=== PATIENT | female | born 1995 | race African-American/Black ===

== ENCOUNTER 2018-01-04 12:03 | Inpatient (IN) | payer BC, OTHER ==
[~2018-01-04 12:03] MED LIST: Bupivacaine/Epinephrine 0.25% 30 ML VIAL ONE; Lidocaine 2% MPF 10 ML AMP (For Epidural Use) ONE; Terbutaline Sulfate 1 MG/ML VIAL ONE
--- NOTE | 2018-01-04 12:42 | PDOC.FPROB ---
FMR OB H&P: HPI - History of Present Illness Chief Complaint: Contractions History of Present Illness: 22YO @ 39.2 weeks with no significant history who presents with a chief complaint of contractions. The patient stated that her contractions began around midnight and at first were about 20 minutes apart but are now closer to 10 minutes apart. She describes the contractions as a tight feeling across her back that she now also feels across her entire abdomen that come and go. Patient also endorses losing what she described as a thick mucus discharge from her vagina around 10:00 today. She denies any gush of fluid or vaginal bleeding , itching or any other discharge. Also denies any other symptoms such as headache, vision changes, SOB, or chest pain. Primary Care Physician: ELADIO FMR OB H&P: Current - Care : 1 Para: 0 Due date: 01/09/2018 Dating Criteria: 11.2 week sono & LMP Course/Complications: Borderline oligohydramnios with MARLENY of 6.62. Borderline IUGR with Hadlock of 11.9%. Both on 12/28/17. - OB Labs Blood type: O RH: positive Antibody Screen: negative HIV: negative RPR: negative HepBsAg: negative Rubella: immune Gonorrhea: negative Chlamydia: negative GBS: negative H&H: 12.2/36.8 on 07/06/17 FMR OB H&P: History - Past Medical History PMH: None. - OB History OB History: Borderline oligohydramnios & IUGR on 12/28/17. - Surgical History Sx History: None. - Social History Social History: Denies any tobacco, EtOH, or drug abuse. - Family History Family History: None. FMR OB H&P: Medications - Current Home Medications: Medication Instructions Recorded Confirmed Type Vit Calc,Iron,Folic 1 each PO 01/04/18 History [ Vitamins] FMR OB H&P: ROS - Review of Systems General: denies: fever/chills Eyes: reports: vision changes Cardiovascular: denies: chest pain, edema Respiratory: denies: shortness of breath Gastrointestinal: reports: abdominal pain, cramping Genitourinary (Female): reports: contractions. denies: dysuria, vaginal discharge, vaginal pain, vaginal bleeding FMR OB H&P: Vital Signs - Maternal Vital signs: Temp: 99.8F BP: 105/70 HR: 99 RR: 18 O2 sat: 100% on RA - Heart Tones Baseline: 150 Variability: moderate Acceleration: absent Deceleration: absent Category: category 1 FMR OB H&P: Physical Exam - Physical Exam General: NAD, awake, alert and oriented HEENT: normocephalic and atraumatic Neck: FROM Heart: RRR, normal S1/S2, no edema General: CTAB, no respiratory distress, good air movement, no wheezing, no retractions Abdomen: gravid, bowel sound present Musculoskeletal: FROM in all four extremities Neurological: cranial nerves II through XII intact, sensation to pain,touch and proprioception grossly normal Skin: no rash, good tugor Lymphatic: no unusual bruising or bleeding Psychiatric: intact recent and remote memory, good judgement and insight, normal mood and affect - Pelvic Exam Vulva: normal hair distribution, no lesions, no discharge, no blood FMR OB H&P: A/P - Problem List (1) Term Current Visit: Yes Status: Acute Code(s): Z34.80 - ENCOUNTER FOR SUPRVSN OF NORMAL , UNSP TRIMESTER Disposition: 22YO @ 39.2 weeks consistent with 11.2 week sono & LMP who presents due to increased contractions. 1. Term - Patient is complaining of contractiosn every 10 minutes. No significant pattern established on NST yet. - FHTs reassuring with baseline of 150 with moderate variability. - SVE significant for check of 3/90/-1 @ ~12:50. - Will encourage PO hydration and recheck in ~2-3 hours & check position with U/S. - Will continue to monitor via NST. Discussion: Date/Time: 01/04/18 6470 This H&P was discussed with Dr. Michaels and Dr. Cabrera who agree with the above documentation and plan.
[2018-01-04 12:57] VITALS: BMI 24.8
[2018-01-04] MEDS: Lactated Ringer's 1,000 ML IV SCH ×2 (15:26→16:46)
--- NOTE | 2018-01-04 15:26 | PDOC.LDPN ---
Labor & Delivery Progress Note - Subjective Subjective: comfortable, vaginal pressure, no concerns - Objective Vital signs reviewed and normal: yes General: NAD Dilation: 4.5 Effacement: 90% Station: -1 FHT: category 1, variability present [place] contractions every: not able to clearly determine contraction pattern based on NST - Assessment (1) Term Code(s): Z34.80 - ENCOUNTER FOR SUPRVSN OF NORMAL , UNSP TRIMESTER Current Visit: Yes Status: Acute -: 22YO @ 39.2 weeks consistent with 11.2 week sono & LMP who presents due to increased contractions. 1. Term - Patient is complaining of stronger contractions. Ordered tylenol PRN for pain. - FHTs reassuring with baseline in the 130s with moderate variability. Will continue to monitor via NST. No significant pattern established on NST yet. - SVE significant for check of 4.5/90/-1 @ ~03:10. - Will admit for routine and start on clear liquid diet. - Confirmed cephalic position and posterior placenta. MARLENY meauring adequate with 1 pocket >3cm identified. - No need for labor augmentation at this point since patient is making adequate progress on her own. - Will recheck in ~2-3 hours. Dispo: Admitting for routine .
[2018-01-04] MEDS ORDERED: Lidocaine 1% (PF) 30 ML VIAL SC PRN (15:27)
[2018-01-04] MEDS ORDERED: Ondansetron HCl/PF 4 MG/2 ML Vial IVP PRN ×2 (15:27→18:09)
[2018-01-04] MEDS ORDERED: Promethazine HCl 25 MG/ML VIAL IM PRN ×2 (15:27→18:09)
[2018-01-04] MEDS ORDERED: Acetaminophen 500 MG TAB PO PRN (15:27)
[2018-01-04 15:52] LABS: Hemoglobin 11.4 g/dL (12.0-16.0); Mean Corpuscular HGB CONC 32.2 g/dL (32.0-36.0); Mean Corpuscular Hemoglobin 25.8 pg (25.0-35.0); Mean Corpuscular Volume 80.1 fL (78.0-98.0); Mean Platelet Volume 8.7 fL (7.4-10.4); Platelet Count 201 thou/uL (130-400); RBC Distribution Width 17.7 % (11.5-14.5); Red Blood Cell (RBC) Count 4.41 mill/uL (4.00-5.20); White Blood Cell (WBC) Count 12.3 thou/uL (4.8-10.8)
[2018-01-04 16:37] LABS: Syphilis Antibody Nonreactive (Nonreactive); Syphilis Antibody Index 0.05 S/CO (<1.00 Non-Reactive)
[2018-01-04 16:39] LABS: HBSAg Index 0.15 S/CO (0-0.99); Hep B Surf Ag Non-Reactive S/CO (NonReactive)
[2018-01-04] MEDS ORDERED: DISCONTINUE ALL PREVIOUS NARCOTICS FS SCH (17:00)
[2018-01-04] MEDS ORDERED: Bupivacaine 0.5% 20 ML, fentaNYL Citrate/PF 400 MCG in Sodium Chloride 0.9% 72 ML EPIDURAL SCH (17:00)
--- NOTE | 2018-01-04 17:58 | PDOC.EVN ---
Event Note - Event Note Event Note: On coming attending note Pt comfortable, tolerating contractions but would like epidural. FHT reviewed. Cat I tracing. Lázaro every 2-3 min. Cervix checked at 1730 by RN, / Doing well currently Continue expectant management Anticipate
[2018-01-04] MEDS ORDERED: Lactated Ringer's 500 ML IV PRN (18:09)
[2018-01-04] MEDS ORDERED: Acetaminophen 325 MG TAB PO PRN (18:09)
[2018-01-04] MEDS ORDERED: Naloxone HCl 0.4 mg/ml Vial IVP PRN ×2 (18:09)
[2018-01-04] MEDS ORDERED: Eucerin (Mineral Oil/Petrolatum,White) 30 gm Jar TOP PRN (18:09)
[2018-01-04] MEDS ORDERED: diphenhydrAMINE 50 MG/ML VIAL IVP PRN (18:09)
[2018-01-04] MEDS ORDERED: ePHEDrine/0.9% NaCl/PF SYRINGE 50 mg/10 ml SLOW IVP PRN (18:09)
[2018-01-04] MEDS ORDERED: Communication Order-Pharmacy FS SCH (18:15)
[2018-01-04] MEDS ORDERED: fentaNYL Citrate/PF 400 MCG, Bupivacaine 0.5% 20 ML in Sodium Chloride 0.9% 72 ML EPIDURAL SCH (18:15)
[2018-01-04] MEDS: NS / Oxytocin 40 units/1000ml 1,000 ML IV PRN ×2 (21:58→23:05)
--- NOTE | 2018-01-04 23:48 | PDOC.OPDEL ---
OB Operative/Delivery Note Delivery Dr/Surgeon: Dr. Abdiel Alfaro, assisted by Dr. Abdiel Santiago, attending Dr. Mcgowan Pre-Delivery Diagnosis: active labor Procedure/Post Delivery Dx: spontaneous vaginal delivery Weeks gestation: 39 (39.2 wks) Anesthesia: epidural - Findings A Sex: male - 1 min: 9 - 5 min: 9 - Additional Findings/Plan Placenta delivered: spontaneous Repaired Obstetrical Laceration: vaginal Estimated blood loss: QBL: 294 Compilations/Other Findings: Vaginal Delivery Dictation Guideline Delivering Physician Dr. Abdiel Alfaro, assisted by Dr. Santiago Attending Dr. Mcgowan Procedure: Spontaneous Vaginal Delivery Anesthesia: epidural QBL: 294 ml Pre-op Diagnosis: 1. Term intrauterine in labor Post-op Diagnosis: 1. Term intrauterine , delivered Indications: A 22 y/o female presents in active labor Delivery Note: This is 22 yo F @ 39.2 wks who delivered a viable M infant at 2154. After cervix completely dilated, during second stage of labor pt experienced prolonged tachysystole so terbutaline was given. Following antepartum course, a vigorous M was delivered over an intact perineum in the LYNSEY position. Anterior Shoulder and then remainder of the body delivered. Nuchal cordx1. The head was held down and mouth and nares were bulb suctioned. After delayed cord clamping, cord was cut and cord blood collected. Placenta delivered intact in the Zavaleta presentation with a 3 vessel cord noted. Fundal massage was performed and the fundus was firm. The cervix and vagina were inspected and found to have a vaginal wall laceration. Laceration noted and repaired with 3.0 vicryl suture in the usual fashion with good approximation and hemostasis. Infant went to nursery in good condition for routine care. Apgars were 9/9 at 1 & 5 minutes, respectively. Patient tolerated delivery well and went to after routine recovery/care. Post delivery plan: routine recovery <Yasmeen Alfaro - Last Filed: 01/04/18 23:46> Attending Addendum - Attending Addendum Date/Time: 01/06/18 1204 I personally evaluated the patient and discussed the management with Dr. Alfaro and Ashish I agree with the History, Examination, Assessment and Plan documented above with any addition or exceptions noted below. I was present for and assisted in the uncomplicated of vigorous male . During pushing, baby had prolonged 5 min decel due to uterine tachysystole. 25 mcg given SC x 1 for tocolysis as baby was too high to attempt a vacuum extraction. Baby recovered nicely and after 30min rest pushing was resumed. Heart tones remained WNL during remainder of 2nd stage. <Maura Mcgowan - Last Filed: 01/06/18 12:08>
[2018-01-05] MEDS ORDERED: Benzocaine/Menthol 20-0.5% 60 ML CAN TOP PRN (00:59)
[2018-01-05] MEDS ORDERED: Milk Of Magnesia 30 ML UDCUP PO PRN (00:59)
[2018-01-05] MEDS ORDERED: diphenhydrAMINE 25 MG CAP PO PRN (00:59)
[2018-01-05] MEDS ORDERED: Bisacodyl 10 MG SUPP PR PRN (00:59)
[2018-01-05] MEDS ORDERED: Adacel (T-DAP) 0.5 ML VIAL IM ONE (00:59)
[2018-01-05] MEDS ORDERED: NS / Oxytocin 40 units/1000ml 1,000 ML IV SCH (00:59)
[2018-01-05] MEDS: Ibuprofen 800 MG TAB PO SCH ×3 (01:43→21:40)
--- NOTE | 2018-01-05 05:47 | PDOC.PP ---
Post Progress Note Post Day #: 1 Subjective: Patient states that she feels well and her pain is well-controlled. Only feels slightly swollen in her vagina. States bleeding is like a heavy period but denies seeing any blood clots. Is breast feeding baby and says it is going ok. Is open to meeting with our publicity consultant. Is voiding normally but has not been passing gas or had a BM yet. Plans to follow-up with Dr. See and to resume Depo-provera for BC following discharge. Overall, no concerns at this time. PO intake tolerated: yes Ambulation: yes Vital Signs (12 hours) Temp Pulse Resp BP 01/05/18 04:15 97.9 F 102 H 18 01/05/18 02:20 97.9 F 102 H 18 105/62 01/05/18 01:17 98.9 F 97 18 107/67 01/05/18 00:45 97.6 F 100 20 111/71 01/04/18 19:52 98.8 F 99 18 Weight Weight 61.689 kg - Physical Examination General: NAD Cardiovascular: no m/r/g, RRR Respiratory: clear to auscultation bilaterally, non-labored breathing Abdominal: + bowel sounds, lochia, appropriately TTP Deviation from normal: mild distension Extremities: negative homans (B) Neurological: no gross focal deficits Psychiatric: A&Ox3, normal affect Result Diagrams: 01/04/18 15:37 Additional Labs: Post Labs Blood Type O POSITIVE 01/04/18 15:37 Hep Bs Antigen Non-Reactive S/CO (NonReactive) 01/04/18 15:37 (1) Term Code(s): Z34.80 - ENCOUNTER FOR SUPRVSN OF NORMAL , UNSP TRIMESTER Status: Resolved (2) Term delivered Code(s): O80 - ENCOUNTER FOR FULL-TERM UNCOMPLICATED DELIVERY Status: Acute - Assessment/Plan 22YO day #1 s/p @ 39.2 weeks. 1. day #1: - Will continue routine care. - No BM yet. Will continue docusate PRN for constipation. Voiding normally. - Will continue JAUN ibuprofen & PRN tylenol & tylenol #3 for pain control. - Baby is breast feeding ok. Will order consult. - Plans to follow-up with Dr. See and resume Depo for BC after discharge. Dispo: Likely will go home tomorrow with follow-up appointment with Dr. See in 2 weeks. <Keyanna Claros - Last Filed: 01/05/18 08:06> Vital Signs (12 hours) Temp Pulse Resp BP 01/05/18 08:56 98.5 F 81 16 98/53 L 01/05/18 08:40 98.5 F 81 16 01/05/18 04:15 97.9 F 102 H 18 01/05/18 02:20 97.9 F 102 H 18 105/62 01/05/18 01:17 98.9 F 97 18 107/67 Weight Weight 61.689 kg Result Diagrams: 01/04/18 15:37 Additional Labs: Post Labs Blood Type O POSITIVE 01/04/18 15:37 Hep Bs Antigen Non-Reactive S/CO (NonReactive) 01/04/18 15:37 <Cinthia Scott - Last Filed: 01/05/18 12:49> Attending Addendum - Attending Addendum Date/Time: 01/05/18 1249 I personally evaluated the patient at 0915 and discussed the management with Dr. Claros I agree with the History, Examination, Assessment and Plan documented above with any addition or exceptions noted below. ppd #1 s/p and vaginal lac repair- recovering well. COntinue routine pp care. Expect d/c tomorrow. <Cinthia Scott - Last Filed: 01/05/18 12:49>
[2018-01-05] MEDS: Ferrous Sulfate 325 MG TAB PO SCH ×2 (08:42→14:49)
[2018-01-05] MEDS: Docusate Calcium (SURFAK) 240 MG CAP PO SCH ×2 (08:42→21:40)
[2018-01-05] MEDS: Prenatal Vitamin 1 TAB PO SCH (08:42)
[2018-01-05] MEDS: Acetaminophen/Codeine 30-300mg Tablet PO PRN (14:39)
[2018-01-06] MEDS: Ibuprofen 800 MG TAB PO SCH ×2 (05:42→14:34)
[2018-01-06 08:06] VITALS: BP 107/57; TEMP 98.3
[2018-01-06] MEDS: Docusate Calcium (SURFAK) 240 MG CAP PO SCH (09:00)
[2018-01-06] MEDS: Prenatal Vitamin 1 TAB PO SCH (09:00)
[2018-01-06] MEDS: Ferrous Sulfate 325 MG TAB PO SCH (09:01)
[2018-01-06] MEDS: Acetaminophen/Codeine 30-300mg Tablet PO PRN (12:00)
--- NOTE | 2018-01-06 12:35 | PDOC.PP ---
Post Progress Note Post Day #: 2 Subjective: 22 yr old G1 now P1 delivered via at 39.2 wks Doing well. Pain well controlled. Lochia decreased. Ambulating. PO intake tolerated: yes Flatus: yes Ambulation: yes Vital Signs (12 hours) Temp Pulse Resp BP 01/06/18 07:55 98.3 F 87 18 107/57 L Weight Weight 61.689 kg - Physical Examination General: NAD Cardiovascular: no m/r/g, RRR Respiratory: clear to auscultation bilaterally Abdominal: no distention, appropriately TTP Fundus firm & at: below umbilicus Neurological: no gross focal deficits Psychiatric: A&Ox3 Result Diagrams: 01/04/18 15:37 Additional Labs: Post Labs Blood Type O POSITIVE 01/04/18 15:37 Hep Bs Antigen Non-Reactive S/CO (NonReactive) 01/04/18 15:37 (1) Term delivered Code(s): O80 - ENCOUNTER FOR FULL-TERM UNCOMPLICATED DELIVERY Status: Acute - Assessment/Plan 22 yr old G1 now P1 delivered via at 39.2 wks 1. TIUP delivered -pain controlled, home on ibuprofen -lochia down -Home today -hgb 11.4 pre delivery with QBL 294 ml Contraception plan : depo provera f/u [facility] in 2 weeks <Deanna Giordano - Last Filed: 01/06/18 12:33> Weight Weight 61.689 kg Result Diagrams: 01/04/18 15:37 Additional Labs: Post Labs Blood Type O POSITIVE 01/04/18 15:37 Hep Bs Antigen Non-Reactive S/CO (NonReactive) 01/04/18 15:37 <Maura Mcgowan - Last Filed: 01/07/18 09:05> Attending Addendum - Attending Addendum Date/Time: 01/07/18 0904 I personally evaluated the patient and discussed the management with Dr. Giordano I agree with the History, Examination, Assessment and Plan documented above with any addition or exceptions noted below. Stable PPD # 2 s/p uncomplicated . Meeting all appropriate PP milestones. D/ C to home today <Maura Mcgowan - Last Filed: 01/07/18 09:05>
== END 2018-01-06 15:34 | disposition home or self-care (01) | DRG 775 ==
LOC: L&D/OP 12:03 → L&D 17:24 → 3SW 01-05 00:51
PROVIDERS: ADMIT Family Medicine; ATTEND Family Medicine
PROC: 10E0XZZ Delivery of Products of Conception, External Approach (ICD-10-PCS; principal; 2018-01-04)
PROC: 0KQM0ZZ Repair Perineum Muscle, Open Approach (ICD-10-PCS; 2018-01-04)
DX: O70.1 Second degree perineal laceration during delivery (principal); Z37.0 Single live birth; O69.81X0 Labor and delivery complicated by cord around neck, without compression, not applicable or unspecified; Z3A.39 39 weeks gestation of pregnancy
CPT/HCPCS: 36415; 51702; 76815; 85027; 86780; 86850; 86900; 86901; 87340; 99285; J2001; J3010; J3105; J3490; J7050